=== PATIENT | male | born 1955 | race Caucasian/White ===

== ENCOUNTER → 2016-07-25 | Outpatient (CLI) | payer OTHER ==
[2016-07-25 08:56] LABS: HEMOGLOBIN 9.3 g/dl (14.0-18.0); MEAN CORPUSCULAR HGB CONC 33.2 g/dl (33.0-37.0); NUCLEATED RED BLOOD CELL 0.1 10*3/uL (0.0-0.0); NUCLEATED RED BLOOD CELL 1.1 % (0.0-0.0); RED CELL DISTRI WIDTH 20.9 % (0-14.5)
[2016-07-25 09:01] LABS: MEAN CORPUSCULAR HGB 37.2 pg (27.0-31.0); MEAN PLATELET VOLUME 10.8 fl (9.6-12.3); PLATELET COUNT AUTOMATED 86 10*3/uL (130-400); WHITE BLOOD COUNT 4.6 10*3/uL (4.8-10.8)
[2016-07-25 09:13] LABS: ESTIMATED AVERAGE GLUCOSE 54; HEMOGLOBIN A1c < 3.5 % (4.8-5.6)
[2016-07-25 09:14] LABS: EOSINOPHIL # 0.1 10*3/uL (0-0.4); EOSINOPHILS 2 % (1-4); LYMPHOCYTE # 1.1 10*3/uL (1.3-4.4); MONOCYTE # 0.1 10*3/uL (0.1-1.0); NEUTROPHIL # 3.4 10*3/uL (2.3-7.9); NEUTROPHILS 73 % (47-73); PLATELET SUFFICIENCY LOW (NORMAL); POLYCHROMASIA SLIGHT; TOTAL CELLS COUNTED 100 #CELLS
[2016-07-25 09:15] LABS: ALBUMIN 4.6 gm/dl (3.1-4.5); ALKALINE PHOSPHATASE 43 U/L (45-117); BILIRUBIN, TOTAL 4.6 mg/dl (0.2-1.0); BUN 17 mg/dl (7-24); CARBON DIOXIDE 28 mmol/L (21-32); CHLORIDE 104 mmol/L (98-107); CHOLESTEROL 86 mg/dL (<200); EST GLOM FILT AFRICAN AMERICAN > 60 ml/min; GLUCOSE 95 mg/dL (65-99); HDL CHOLESTEROL 32 mg/dl (40-60); LDL CHOLESTEROL 17 mg/dL (9-159); POTASSIUM 4.6 mmol/L (3.5-5.1); SGOT/AST 26 IU/L (3-35); SGPT/ALT 30 U/L (12-78); SODIUM 142 mmol/L (136-145); TOTAL PROTEIN 7.2 gm/dL (6.4-8.2); TRIGLYCERIDES 183 mg/dl (<150); VLDL CHOLESTEROL 37 mg/dL (6-40)
== END | disposition home or self-care (01) ==
LOC: LAB 08:21
PROVIDERS: Physician Assistant Medical
DX: Z12.5 Encounter for screening for malignant neoplasm of prostate (principal); E11.9 Type 2 diabetes mellitus without complications; D58.9 Hereditary hemolytic anemia, unspecified; E78.4 Other hyperlipidemia

== ENCOUNTER 2022-01-27 16:04 | Emergency (ER) | payer OTHER, MEDICARE ==
[~2022-01-27] VITALS: Ht 177.8 cm; Wt 93.4 kg
[2022-01-27 17:02] LABS: BASO % 0.2 % (0.0-1.0); HEMATOCRIT 22.5 % (42.0-52.0); LYMPH # 0.4 10*3/uL (1.3-4.4); LYMPH % 9.1 % (27.0-41.0); MEAN CELL VOLUME 104.7 fl (80.0-94.0); MEAN CORPUSCULAR HGB 32.6 pg (27.0-31.0); MEAN CORPUSCULAR HGB CONC 31.1 g/dl (33.0-37.0); MEAN PLATELET VOLUME 10.6 fl (9.6-12.3); MONO # 0.5 10*3/uL (0.1-1.0); MONO % 9.4 % (3.0-9.0); NEUT # 3.9 10*3/uL (2.3-7.9); NEUT % 81.1 % (47.0-73.0); PLATELET COUNT AUTOMATED 92 10*3/uL (130-400); RED BLOOD COUNT 2.15 10*6/uL (4.50-5.90); RED CELL DISTRI WIDTH 19.8 % (0-14.5); WHITE BLOOD COUNT 4.8 10*3/uL (4.8-10.8)
[2022-01-27 17:03] LABS: CREATININE 1.48 mg/dL (0.70-1.30); POTASSIUM 4.2 mmol/L (3.5-5.1)
[2022-01-27 18:14] VITALS: BP 127/57
== END 2022-01-27 21:15 | disposition home or self-care (01) ==
LOC: ED 16:04
PROVIDERS: Physician Assistant
DX: G62.9 Polyneuropathy, unspecified (principal); D53.9 Nutritional anemia, unspecified; M79.671 Pain in right foot; M79.672 Pain in left foot; M79.89 Other specified soft tissue disorders; R11.0 Nausea; R51.9 Headache, unspecified; Z88.1 Allergy status to other antibiotic agents

== ENCOUNTER → 2023-02-04 | Day surgery (SDC) | payer OTHER ==
[~2023-02-04] VITALS: Ht 177.8 cm; Wt 95.3 kg
[~2023-02-04] MED LIST: GLIPIZIDE2.5 MG PO; LYRICA100 M1 PO; MULTIPLE VITAM1 EAC1 PO; NATURE'S BLEND F1 MG PO; TOBRAMYCIN5 ML PO; TRAMADOL HCL50 MG PO
[2023-02-04 07:25] VITALS: BP 164/81
[2023-02-04 08:41] VITALS: BP 126/63
[2023-02-04 08:56] VITALS: BP 133/63
[2023-02-04 09:11] VITALS: BP 131/62
== END | disposition home or self-care (01) ==
LOC: SDC 01-30 11:00
PROVIDERS: ATTEND Ophthalmology
DX: E11.36 Type 2 diabetes mellitus with diabetic cataract (principal); H25.13 Age-related nuclear cataract, bilateral; E78.00 Pure hypercholesterolemia, unspecified; E11.40 Type 2 diabetes mellitus with diabetic neuropathy, unspecified; D58.9 Hereditary hemolytic anemia, unspecified; Z87.891 Personal history of nicotine dependence; Z85.828 Personal history of other malignant neoplasm of skin; Z98.890 Other specified postprocedural states; Z88.1 Allergy status to other antibiotic agents; Z91.048 Other nonmedicinal substance allergy status

== ENCOUNTER → 2023-06-30 | Outpatient (CLI) | payer OTHER | END | disposition home or self-care (01) | LOC: US 01:13 | PROVIDERS: ATTEND Urology | DX: N28.89 Other specified disorders of kidney and ureter (principal); N43.3 Hydrocele, unspecified; N50.3 Cyst of epididymis; N40.0 Benign prostatic hyperplasia without lower urinary tract symptoms; N28.1 Cyst of kidney, acquired; R16.1 Splenomegaly, not elsewhere classified ==

== ENCOUNTER → 2023-07-31 | Outpatient (CLI) | payer OTHER | END | disposition home or self-care (01) | LOC: CT 01:47 | PROVIDERS: ATTEND Urology | DX: N21.0 Calculus in bladder (principal); K76.0 Fatty (change of) liver, not elsewhere classified; R16.1 Splenomegaly, not elsewhere classified; M47.817 Spondylosis without myelopathy or radiculopathy, lumbosacral region; N28.1 Cyst of kidney, acquired ==